=== PATIENT | male | born 1960 | race Caucasian/White ===

== ENCOUNTER 2018-07-03 12:57 | Emergency (ER) | payer OTHER ==
[~2018-07-03] VITALS: Ht 165.1 cm; Wt 80.0 kg
[~2018-07-03 12:57] MED LIST changes: -DELTASONE20 MG PO; -EPIPEN 2-P0.3 MG/0.3 SC
[2018-07-03] MEDS ORDERED: EPIPEN 2-P0.3 MG/0.3 SC (14:29)
[2018-07-03] MEDS ORDERED: DELTASONE20 MG PO (14:29)
[2018-07-03 14:31] VITALS: BP 139/70
== END 2018-07-03 14:38 | disposition home or self-care (01) | DRG 918 ==
LOC: ED 12:57
DX: T63.441A Toxic effect of venom of bees, accidental (unintentional), initial encounter (principal); L50.0 Allergic urticaria; R06.02 Shortness of breath; Y92.009 Unspecified place in unspecified non-institutional (private) residence as the place of occurrence of the external cause

== ENCOUNTER → 2018-07-03 | Outpatient (REF) ==
[~2018-07-03] MED LIST: BACTRIM DS1 TAB PO; DELTASONE20 MG PO; DIFLUCAN150 MG PO; EPIPEN 2-P0.3 MG/0.3 SC; LISINOPRIL10 MG PO; MENS MULTI PO; NO HOME MEDS; TRAMADOL HCL50 MG PO; [UNRECOGNIZED DRUG - OTHER] PO
== END | disposition home or self-care (01) | DRG 951 ==
LOC: LAB 14:40
DX: Z02.83 Encounter for blood-alcohol and blood-drug test (principal)